=== PATIENT | female | born 2000 | race Caucasian/White ===

== ENCOUNTER 2022-06-01 19:35 | Emergency (ER) | payer MEDICAID ==
[~2022-06-01] VITALS: Ht 157.5 cm; Wt 81.6 kg
[~2022-06-01 19:35] MED LIST: IBUP-2030 PO
[2022-06-02] MEDS ORDERED: ONDANSETRON HCL 4MG/2ML INJ IM STA (00:22)
[2022-06-02] MEDS ORDERED: KETOROLAC 60MG/2ML VIAL IM STA (00:22)
[2022-06-02 00:51] LABS: CLARITY URINE CLOUDY (CLEAR); COLOR URINE DARK YELLOW (YELLOW); KETONES URINE 4+ (NEGATIVE); LEUKOCYTE ESTERASE URINE 2+ (NEGATIVE); NITRITE URINE NEGATIVE (NEGATIVE); OCCULT BLOOD URINE 3+ (NEGATIVE); PROTEIN URINE 2+ (NEGATIVE); SPECIFIC GRAVITY URINE 1.015 (1.005-1.030)
[2022-06-02] MEDS ORDERED: CEFTRIAXONE SODIUM 1 G/VIAL IM ONE (01:00)
[2022-06-02] MEDS ORDERED: LIDOCAINE HCL/PF 1% 10 MG/ML 5ML VIAL INFIL ONE (01:00)
[2022-06-02] MEDS ORDERED: ONDANSETRON HCL 4MG/2ML INJ IM NR (05:15)
[2022-06-02] MEDS ORDERED: CEFTRIAXONE SODIUM 1 G/VIAL IM NR (05:15)
[2022-06-02] MEDS ORDERED: LIDOCAINE HCL/PF 1% 10 MG/ML 5ML VIAL INFIL NR (05:15)
[2022-06-02] MEDS ORDERED: KETOROLAC 60MG/2ML VIAL IM NR (05:15)
[2022-06-02 05:51] LABS: BASOPHILS % 0.2 % (0.0-2.0); HEMATOCRIT. 43.2 % (36.0-48.0); HEMOGLOBIN. 14.2 g/dL (12.0-16.0); LYMPHOCYTES % 8.4 % (20.0-50.0); MEAN CORPUSCULAR HEMOGLOBIN 28.5 pg (28.0-32.0); MEAN CORPUSCULAR VOLUME 86.3 fL (81.0-99.0); MEAN PLATELET VOLUME 10.3 fl (7.4-10.4); MONOCYTES % 11.1 % (2.0-8.0); NEUTROPHILS % 80.3 % (40.0-76.0); PLATELET 177 x1000/uL (130-400); RED BLOOD CELL COUNT 5.01 mill/uL (4.2-5.4); RED CELL DISTRIBUTION WIDTH 13.7 % (11.6-14.6)
[2022-06-02 05:57] LABS: CHLORIDE 100 mEq/L (98-107)
[2022-06-02] MEDS ORDERED: NAPR-681 PO (06:23)
[2022-06-02] MEDS ORDERED: SULF1TAB48 PO (06:23)
[2022-06-02] MEDS ORDERED: ONDA4TAB50 PO (06:23)
[2022-06-02 06:51] VITALS: BP 125/75
[2022-06-02] MEDS ORDERED: POTASSIUM CHLORIDE 10MEQ TABLET SR PO NR (08:00)
[2022-06-06 06:16] LABS: NEISSERIA GONORRHOEAE NAA Negative (Negative)
== END 2022-06-02 06:51 | disposition home or self-care (01) ==
LOC: ER 19:35
DX: N39.0 Urinary tract infection, site not specified (principal); E87.6 Hypokalemia; M79.18 Myalgia, other site; R19.7 Diarrhea, unspecified; Z98.890 Other specified postprocedural states; Z20.822 Contact with and (suspected) exposure to COVID-19
CPT/HCPCS: 80053; 81001; 81025; 83605; 83690; 85025; 87426; 87491; 87591; 96372; 99284; C9803; J0696; J1885; J2405; J3490

== ENCOUNTER 2024-02-20 21:32 | Emergency (ER) | payer MEDICAID ==
[~2024-02-20] VITALS: Ht 157.5 cm; Wt 77.0 kg
[~2024-02-20 21:32] MED LIST changes: +NAPR-681 PO; +ONDA4TAB50 PO; +SULF1TAB48 PO
[2024-02-20 21:39] VITALS: BP 112/60; PULSE 77; RESP 16; TEMP 98.6; O2SAT 98
[2024-02-20] MEDS ORDERED: ONDANSETRON 4MG ODT PO STA (22:46)
[2024-02-20] MEDS ORDERED: FAMOTIDINE 20MG TABLET PO ONE (23:00)
[2024-02-21 00:06] LABS: HEMATOCRIT. 43.2 % (36.0-48.0); HEMOGLOBIN. 14.9 g/dL (12.0-16.0); MEAN CORPUSCULAR HEMOGLOBIN 30.8 pg (28.0-32.0); MEAN CORPUSCULAR HGB CONC 34.6 g/dL (31.0-37.0); MEAN PLATELET VOLUME 10.1 fl (7.4-10.4); PLATELET 228 x1000/uL (130-400); RED BLOOD CELL COUNT 4.85 mill/uL (4.2-5.4); RED CELL DISTRIBUTION WIDTH 13.4 % (11.6-14.6); WHITE BLOOD COUNT 9.9 x1000/uL (4.5-11.0)
[2024-02-21 00:13] LABS: CHLORIDE 103 mEq/L (98-107); POTASSIUM 3.4 mEq/L (3.5-5.1); SODIUM 139 mEq/L (136-145)
[2024-02-21 00:14] LABS: CALCIUM 10.7 mg/dL (8.7-10.4); CARBON DIOXIDE 27 mEq/L (21-32); DIFFERENTIAL COMMENT 1
[2024-02-21 00:19] LABS: CREATININE 0.7 mg/dL (0.6-1.0); GLUCOSE 116 mg/dL (70-105); UREA NITROGEN BLOOD 9 mg/dL (9-23)
[2024-02-21 00:21] LABS: ALANINE AMINOTRANSFERASE < 7 IU/L (10-49); ASPARTATE AMINOTRANSFERASE 16 IU/L (<34); BILIRUBIN TOTAL 1.8 mg/dL (0.1-1.0); PROTEIN TOTAL 8.2 g/dL (6.0-8.3)
[2024-02-21 00:28] LABS: PROTHROMBIN TIME 10.9 sec (9.6-11.0)
[2024-02-21] MEDS ORDERED: ONDA4TAB11 PO (00:57)
[2024-02-21 08:00] LABS: PLATELET ESTIMATE NORMAL
== END 2024-02-21 01:51 | disposition home or self-care (01) ==
LOC: ER 21:32
DX: K52.9 Noninfective gastroenteritis and colitis, unspecified (principal); R10.816 Epigastric abdominal tenderness; Z98.890 Other specified postprocedural states
CPT/HCPCS: 36415; 80053; 85025; 99283